=== PATIENT | male | born 1990 | race Caucasian/White ===

== ENCOUNTER 2020-09-08 08:46 | Outpatient (CLI) | payer OTHER, SELFPAY ==
--- NOTE | 2020-09-26 10:00 | WPDHOMESLEEP ---
Sleep Study - Home Unattended Date of Study: 09/08/20 Ordering Provider: Charlotte Crooks NP Interpreting Provider: Jaycee Jacobo MD Home Sleep Study Type: Watch PAT Height: 1.78 m Weight: 83.915 kg Body Mass Index: 26.5 Neck Circumference (inches): 16 Dexter: 11 Reason for Sleep Study Hypersomnolence Sleep History Dariel Cuba is a 30 year old male with complaints of difficulty breathing while he sleeps. He does not feel refreshed on waking. He wakes up during the night and he has excessive daytime sleepiness. There is a family history of sleep issues with his father having sleep apnea. He occasionally awakens from sleep feeling short of breath and occasionally awakens at night with heartburn, belching or coughing. He constantly snores and is always loud enough that others complain about it. He occasionally has trouble sleeping with a cold. He occasionally wakes up gasping for breath at night. He frequently has breathing problems at night observed by others. He rarely sweats excessively at night and rarely notices his heart pounding or beating irregularly night. He occasionally falls asleep during the day, rarely falls asleep involuntarily, never falls asleep while driving. He does not have loss of muscle tone with strong emotion. He occasionally has daytime difficulties due to excessive sleepiness. He does not feel paralyzed on waking or falling asleep nor does he have vivid dreamlike scenes upon awakening or falling asleep. He does not feel afraid to go to sleep. He occasionally has nightmares and occasionally remembers his dreams. He rarely has racing thoughts. He does not feel sad or depressed. He occasionally has anxiety and muscular tension. He does not notice parts of his body jerking and he does not kick at night. He rarely has crawling and aching feelings in his legs, rarely has any kind of leg pain at night and rarely has morning jaw pain. He frequently grinds his teeth during sleep. He is not bothered by pain during the day nor is he awakened by pain during the night. He occasionally wakes up feeling stiff in the morning with sore achy muscles and and pain in the neck and spine. He has headaches. Normal bedtime is between 9:30 and 10:00 p.m. falling asleep quickly, waking 1-2 times at night for 30 minutes. While awake, he gets a glass of water and returns to sleep. He wakes in the morning at 3:00 a.m.. His weekend schedule is the same. He estimates getting between 5 and 8 hours of sleep at night. He does not take naps. A short nap is not refreshing. He is drowsy in the morning for an hour. He feels better in the afternoon compared the morning. Habits: Quit tobacco several years ago. Caffeine 2-3 servings per day. Alcohol 1-2 servings per day. No recreational drugs. [facility] Past Medical History Medical History BMI 28.0-28.9,adult Elevated BP without diagnosis of hypertension Encounter to establish care Hypersomnia Snoring Surgical History Surgical History History of splenectomy Social History Social History Smoking status: Never smoker Alcohol intake: current Drinks per week: 3 Alcohol use details: 3 beers per week Substance use: never Medications Home Medications Medication Instructions Recorded Confirmed Type No Home Medications 08/03/20 08/03/20 History Sleep Procedure The sleep study was completed using [employer] a technically adequate device with seven channels: peripheral arterial tone, actigraphy, body position, snore, respiratory movement, pulse oximetry, sleep staging, and heart rate. Prior to using the device, the patient received verbal and written instructions for its application and was provided with the help desk phone number for additional telephonic instruction with 24-hour availability of remy
[2020-09-26 10:03] VITALS: BMI 26.5
== END 2020-09-09 13:27 | disposition home or self-care (01) ==
LOC: ANHCSM 08:46
PROVIDERS: PCP Nurse Practitioner Family; Visit Provider Nurse Practitioner Family
DX: G47.10 Hypersomnia, unspecified (principal); G47.39 Other sleep apnea
CPT/HCPCS: 95800